=== PATIENT | female | born 1995 | race Caucasian/White ===

== ENCOUNTER 2025-02-11 12:45 | Outpatient (CLI) | payer MEDICAID ==
--- NOTE | 2025-02-11 14:34 | RADIOLOGY REPORT ---
Exam: US ULTRASOUND HEAD NECK Date: 02/11/2025 01:51 PM Clinical History: RADICULOPATHY, CERVICAL REGION Comparison: None Technique: Targeted sonographic evaluation of the soft tissues of the left posterior neck was obtained utilizing grayscale and color Doppler imaging. Findings/Impression: In region of palpable abnormality in the left posterior neck, there is a heterogeneous mass measuring 1.7 x 1.1 x 1.5 cm which may represent a abnormal enlarged lymph node. Further evaluation with CT o r MRI soft tissue neck with contrast is recommended.
== END 2025-02-11 23:59 | disposition home or self-care (01) ==
LOC: RAD 12:45
PROVIDERS: ATTEND Family Medicine
DX: R22.1 Localized swelling, mass and lump, neck (principal); M54.12 Radiculopathy, cervical region
CPT/HCPCS: 76536

== ENCOUNTER 2025-04-08 16:10 | Outpatient (CLI) | payer MEDICAID ==
--- NOTE | 2025-04-08 17:12 | RADIOLOGY REPORT ---
PROCEDURE: MR MRI LUMBAR SPINE INDICATION: RADICULOPATHY, CERVICAL REGION Exam Date: 04/08/2025 04:14 PM COMPARISON: MR MRI C SPINE on DOS: 04/01/25 TECHNIQUE: MRI lumbar spine without intravenous contrast. FINDINGS: Postsurgical changes extending from the lower thoracic spine through the L3 level. Metallic artifact significantly limits evaluation at these levels. There are degenerative endplate changes including modic endplate changes with anterior and lateral osteophytes throughout the lumbar spine. Distal spin al cord is obscured. Conus is obscured. The visualized retroperitoneal and paraspinal soft tissues are unremarkable. The following axial levels are detailed below: T12-L1: Obscured L1-L2: Obscured L2-L3: Obscured L3-L4: Unremarkable. L4-L5: There is a moderate circumferential disc bulge complicated by facet arthropathy associated w ith mild to moderate left neuroforaminal stenosis. No significant central canal stenosis. L5-S1: There is a moderate circumferential disc bulge complicated by facet arthropathy associated wi th mild to moderate bilateral neuroforaminal stenosis. No significant central canal stenosis. IMPRESSION: 1. Metallic artifact limits evaluation of the upper lumbar spine. Degenerative changes in the lower lumbar spine. No significant central canal stenosis. Neural foraminal stenosis as above. HS:Y
== END 2025-04-08 23:59 | disposition home or self-care (01) ==
LOC: MRI02 16:10
PROVIDERS: ATTEND Family Medicine
DX: M51.379 Other intervertebral disc degeneration, lumbosacral region without mention of lumbar back pain or lower extremity pain (principal); M47.817 Spondylosis without myelopathy or radiculopathy, lumbosacral region; M48.07 Spinal stenosis, lumbosacral region; M54.12 Radiculopathy, cervical region
CPT/HCPCS: 72148